=== PATIENT | female | born 1960 | race Caucasian/White ===

== ENCOUNTER 2017-02-14 11:28 | Emergency (ER) | payer MEDICAID ==
[2017-02-14 11:36] VITALS: RESP 16
--- NOTE | 2017-02-14 12:18 | EDPHY ---
H & P Stated Complaint: 8 weeks of increasing pain to left hand. Time Seen by Provider: 02/14/17 12:17 HPI/ROS: HPI: This is a 56-year-old female presents with Chief Complaint: 8 weeks of increasing pain to left hand. 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 She has been followed by her primary care provider given a Velcro wrist splint that she reports she is unable to wear due to the swelling and pain. She has been taking gabapentin as well as naproxen without relief. Approximately 4 weeks ago she needed a Medrol Dosepak with transient relief. She is scheduled with Urology on Friday for EMG to rule out carpal tunnel syndrome. Modifying Factors: See above Comment: ROS: see HPI Constitutional: No fever, no chills, no weight loss Eyes: No blurred vision Respiratory: No shortness of breath, no cough Cardiovascular: No chest pain Gastrointestinal: No nausea, no vomiting no diarrhea Genitourinary: No dysuria Extremities: No myalgias Neurologic: No weakness, no numbness Skin: No rashes Hematologic: No bruising, no bleeding MEDICAL/SURGICAL/SOCIAL HISTORY: Medical history: Generally healthy. Does not take any regular medications. Surgical history: Denies Social history: .. CONSTITUTIONAL: awake and alert, no obvious distress HEENT: Atraumatic and normocephalic, PERRL, EOMI. Tympanic membranes clear. Oropharynx clear, no exudate and moist pink mucosa. Airway patent. No lymphadenopathy. No meningismus. Cardiovascular: Normal S1/S2, regular rate, regular rhythm, without murmur rub or gallop. PULMONARY/CHEST: Symmetrical and nontender. Clear to auscultation bilaterally. Good air movement. No accessory muscle usage. ABDOMEN: Soft, nondistended, nontender, no rebound, no guarding, no peritoneal signs, no masses or organomegaly. No CVAT. EXTREMITIES: 2/2 radial pulses, strength 5/5, LEFT WRIST: Extension to 30, flexion to 40, radial deviation to 10 degree, ulnar deviation to 10, no scaphoid tenderness, no tenderness over ulnar styloid, no tenderness over radial styloid, moderate pain with Michael test, moderate pain with Phalen test, moderate pain with Tinel test, no deformities, no clubbing, no cyanosis or edema. NEUROLOGICAL: no focal neuro deficits. GCS 15. SKIN: Warm and dry, no erythema. no rash. Good capillary refill. Source: Patient Exam Limitations: No limitations - Personal History Current Tetanus Diphtheria and Acellular Pertussis (TDAP): Unsure - Medical/Surgical History Hx Asthma: No Hx Chronic Respiratory Disease: No Hx Diabetes: No Hx Cardiac Disease: No Hx Renal Disease: No Hx Cirrhosis: No Hx Alcoholism: No Hx HIV/AIDS: No Hx Splenectomy or Spleen Trauma: No Other PMH: Denies. - Social History Smoking Status: Never smoked Constitutional: Initial Vital Signs Temperature (C) 36.5 C 02/14/17 11:32 Heart Rate 77 02/14/17 11:32 Respiratory Rate 16 02/14/17 11:32 Blood Pressure 145/93 H 02/14/17 11:32 O2 Sat (%) 97 02/14/17 11:32 O2 Delivery Mode Room Air Allergies/Adverse Reactions: No Known Allergies Allergy (Unverified 02/14/17 11:36) Home Medications: Medication Instructions Recorded GABAPENTIN 02/14/17 LORazepam [Ativan] 1 mg PO Q6H PRN 02/14/17 oxyCODONE/APAP 5/325 [Percocet 1 - 2 tab PO Q4H PRN #12 tab 02/14/17 5/325 (*)] Medical Decision Making - Diagnostics Imaging Results: Imaging Impressions Hand X-Ray 02/14/17 12:41 Impression: Excessive demineralization. No evidence of osteomyelitis. Wrist X-Ray 02/14/17 12:41 Impression: Demineralization. No evidence of osteomyelitis. Elbow X-Ray 02/14/17 12:49 Impression: Demineralization. No acute fracture or effusion. Humerus X-Ray 02/14/17 12:49 Impression: Osteopenia with no acute osseous findings. Procedures: Procedure: Splint placement. A volar splint was applied by the Emergency Room plumbing technician. After application of the splint I returned and re-examined the patient. The splint was adequately immobilizing the joint and distal to the splint the patient's circulation and sensation was intact. ED Course/Re-evaluation: Wrist and hand x-rays ordered Given p.o. Flexeril and p.o. [facility] X-rays reviewed via my read that showed degenerative changes but no acute fracture, dislocation No signs of neurovascular compromise/tenting of skin/compartment syndrome/ extremities and joints examined above and below area of concern and are neurovascularly intact/cellulitis/gouty arthropathy/fracture. Patient unable to tolerate wrist Velcro splint given by PCP. Placed in volar splint Ortho Glass in the ER for comfort. Reassessed pain and down to 2/10. Follow-up with Hand surgery and Neurology Differential Diagnosis: Differential diagnosis includes but is not limited to do a choir events tenosynovitis, carpal tunnel syndrome, wrist sprain, nerve injury, tendon injury , elbow epicondylitis. - Data Points Medications Given: Discontinued Medications Cyclobenzaprine HCl (Flexeril) 10 mg PO EDNOW ONE Stop: 02/14/17 12:42 Last Admin: 02/14/17 12:49 Dose: 10 mg Oxycodone/Acetaminophen (Percocet 5/325) 1 tab PO EDNOW ONE Stop: 02/14/17 12:42 Last Admin: 02/14/17 12:48 Dose: 1 tab Departure - Departure Disposition: Home, Routine, Self-Care Clinical Impression: De Quervain's tenosynovitis, left, Carpal tunnel syndrome, left Condition: Good Instructions: De Quervain Disease (ED), Tenosynovitis (ED), Paresthesia (ED) Additional Instructions: Keep the splint dry and in place until seen by Neurology/hand surgery for follow -up. Continue to take naproxen and gabapentin. Apply ice for 30 minutes at a time; 2-3 times per day for the next 1-2 days. Follow up with Neurology on Friday and hand surgery in 5-7 days at which time they will evaluate and recommend with you if conservative management versus surgery is indicated. The x-rays obtained in the emergency department today demonstrate no evidence of an obvious fracture. Sometimes fractures are not obvious on the initial set of x-rays performed in the ED. For this reason, you should have repeat x-rays performed in 7-10 days if you are having any pain exclude the possibility of an occult fracture. Referrals: [facility] [Other] - As per Instructions Olvin Flanagan MD [Medical Doctor] - As per Instructions Prescriptions: oxyCODONE/APAP 5/325 [Percocet 5/325 (*)] 1 - 2 tab PO Q4H PRN #12 tab PRN Reason: Pain, Severe
[2017-02-14] MEDS ORDERED: OXYCODONE/APAP 5/325 TAB PO ONE (12:41)
[2017-02-14] MEDS ORDERED: CYCLOBENZAPRINE 10 MG TAB PO ONE (12:41)
[2017-02-14 14:45] VITALS: BP 131/91; PULSE 65; TEMP 98.2; O2SAT 94
== END 2017-02-14 15:03 | disposition home or self-care (01) ==
DX: M65.4 Radial styloid tenosynovitis [de Quervain] (principal); G56.02 Carpal tunnel syndrome, left upper limb

== ENCOUNTER → 2017-12-05 | Outpatient (CLI) | payer MEDICAID, OTHER ==
[~2017-12-05] MED LIST: IOPAMIDOL (ISOVUE-300) 100 ML BTL ONE
== END ==
LOC: FIMAGING 08:51
PROVIDERS: ATTEND Surgery
DX: R22.1 Localized swelling, mass and lump, neck (principal)
CPT/HCPCS: Q9967

== ENCOUNTER 2018-06-11 14:16 | Emergency (ER) | payer MEDICAID ==
--- NOTE | 2018-06-11 15:18 | EDPHY ---
H & P Stated Complaint: high blood pressure sent by dr. geller Time Seen by Provider: 06/11/18 14:57 HPI/ROS: CHIEF COMPLAINT: Elevated blood pressure HISTORY OF PRESENT ILLNESS: 57-year-old female with complex regional pain syndrome presents with elevated blood pressure. She was seen by a surgeon yesterday and her systolic blood pressure was 150. Today, she was seen by Dr. Geller and BP was again elevated (SBP 159). She tried to get an appointment with her primary care physician, but no appointments were available. She was referred to the emergency department for elevated blood pressure. She has history of complex regional pain syndrome and is constantly in pain. She is getting frustrated because of limited relief/solutions. She is taking gabapentin with minimal relief. No prior history of elevated blood pressure. Ongoing pain in the neck and left arm. No headache now. REVIEW OF SYSTEMS: complete 10 point ROS reviewed and is negative except for the noted elements in the HPI - Personal History Current Tetanus/Diphtheria Vaccine: No Current Tetanus Diphtheria and Acellular Pertussis (TDAP): No - Medical/Surgical History Hx Asthma: No Hx Chronic Respiratory Disease: No Hx Diabetes: No Hx Cardiac Disease: No Hx Renal Disease: No Hx Cirrhosis: No Hx Alcoholism: No Hx HIV/AIDS: No Hx Splenectomy or Spleen Trauma: No Other PMH: Denies. - Social History Smoking Status: Never smoked - Physical Exam Exam: General Appearance: Alert, pleasant Eyes: Pupils equal and round, no conjunctival pallor or injection ENT, Mouth: Mucous membranes moist Neck: Normal inspection Respiratory: Lungs are clear to auscultation Cardiovascular: Regular rate and rhythm Gastrointestinal: Abdomen is soft and nontender Neurological: A&O, nonfocal, normal gait Skin: Warm and dry Extremities: no pedal edema Psychiatric: Mood and affect normal Constitutional: Initial Vital Signs Temperature (C) 36.6 C 06/11/18 14:21 Heart Rate 72 06/11/18 14:21 Respiratory Rate 18 06/11/18 14:21 Blood Pressure 155/89 H 06/11/18 14:21 O2 Sat (%) 96 06/11/18 14:21 O2 Delivery Mode Room Air Allergies/Adverse Reactions: No Known Allergies Allergy (Unverified 02/14/17 11:36) Home Medications: Medication Instructions Recorded GABAPENTIN 02/14/17 LORazepam [Ativan] 1 mg PO Q6H PRN 02/14/17 oxyCODONE/APAP 5/325 [Percocet 1 - 2 tab PO Q4H PRN #12 tab 02/14/17 5/325 (*)] Medical Decision Making ED Course/Re-evaluation: This pt presents with elevated BP. Usual BP normal. Likely elevated readings secondary to pain. Repeat BP 139/84. No indication for blood pressure medication today. Will have the patient check and record her blood pressure twice daily and follow up with her primary care physician in one week. Departure - Departure Disposition: Home, Routine, Self-Care Clinical Impression: Elevated blood pressure reading Condition: Good Instructions: Additional Information Additional Instructions: Your blood pressure readings today are 155/94 and 139/84. Check and record your blood pressure daily. Call your physician today to make a follow-up appointment. Share the blood pressure data with your physician. Referrals: Tram Kemp MD [Medical Doctor] - As per Instructions
[2018-06-11 15:33] VITALS: BP 154/96
== END 2018-06-11 15:30 | disposition home or self-care (01) ==
DX: R03.0 Elevated blood-pressure reading, without diagnosis of hypertension (principal)

== ENCOUNTER → 2018-08-26 | Outpatient (CLI) | payer MEDICAID | LOC: FIMAGING 07:47 ==

== ENCOUNTER → 2018-09-12 | Outpatient (CLI) | payer MEDICAID | LOC: FIMAGING 07:28 ==